=== PATIENT | female | born 1960 | race Caucasian/White ===

== ENCOUNTER 2023-09-22 05:51 | Inpatient (IN) ==
[~2023-09-22 05:51] MED LIST: Metoclopramide 5 MG/ML VIAL (10 mg) IV PRN; NS 0.45% 1000 ml BAG 1,000 ML IV SCH; Naloxone 0.4 mg VIAL 0.4 mg/ml 1 ml VIAL IV PRN; Ondansetron 4 mg VIAL 2 MG/ML 2 ml VIAL IV PRN; fentaNYL 100 mcg/2 ml 50 MCG/ML VIAL IV PRN
[2023-09-22] MEDS ORDERED: Scopolamine 1 mg/72hr PATCH ONE (06:12)
[2023-09-22] MEDS ORDERED: ceFAZolin 2 GM in NS PREMIX 2 GM/100 ML BAG IVPB ONE (06:13)
[2023-09-22] MEDS: Scopolamine 1 mg/72hr PATCH TRANSDERM ONE (06:25)
[2023-09-22] MEDS ORDERED: Lidocaine 2% PF 5 ML VIAL ONE (06:47)
[2023-09-22] MEDS ORDERED: Midazolam 2 mg/2 ml VIAL 1 mg/ml 2 ml VIAL (2 mg) ONE (06:47)
[2023-09-22] MEDS ORDERED: fentaNYL 100 mcg/2 ml 50 MCG/ML VIAL ONE ×3 (06:47→10:38)
[2023-09-22] MEDS ORDERED: Propofol 10 MG/ML 20 ML BTL ONE (06:47)
[2023-09-22] MEDS ORDERED: Ondansetron 4 mg VIAL 2 MG/ML 2 ml VIAL ONE (06:47)
[2023-09-22] MEDS ORDERED: Dexamethasone IV 4 MG/ML VIAL 1 ml VIAL ONE ×2 (06:47→07:15)
[2023-09-22] MEDS ORDERED: Rocuronium 50 mg VIAL 10 mg/ml 5 ml VIAL (50 mg) ONE (06:47)
[2023-09-22] MEDS ORDERED: Phenylephrine 40 mcg/mL 10mL (400mcg) SYRINGE ONE (06:47)
[2023-09-22] MEDS ORDERED: ROPIVACAINE 5 MG/ML 30 ML BTL (0.5%) ONE (07:13)
[2023-09-22] MEDS ORDERED: Vancomycin 1,000 MG VIAL ONE (08:23)
[2023-09-22] MEDS ORDERED: Lactulose 30 ml UDC PO PRN (09:55)
[2023-09-22] MEDS ORDERED: Ondansetron 4 mg VIAL 2 MG/ML 2 ml VIAL IV PRN (09:55)
[2023-09-22] MEDS ORDERED: Magnesium Hydroxide LIQ 30 ML UDC PO PRN (09:55)
[2023-09-22] MEDS ORDERED: Morphine 2 MG/ML SYRINGE IV PRN (09:55)
[2023-09-22] MEDS ORDERED: Ondansetron ODT 4 mg TAB 4 MG TAB PO PRN (09:55)
[2023-09-22] MEDS ORDERED: ceFAZolin VIAL VIAL ONE (11:05)
[2023-09-22] MEDS: Buffered Lidocaine 1% SYRIN 1 ml INTRADERM ONE (13:47)
[2023-09-22] MEDS: Lactated Ringers 1000 ml BAG 1,000 ML IV SCH ×2 (13:47→14:54)
[2023-09-22] MEDS: Acetaminophen IV 1 GM/100ML 1,000 MG/100 ML BAG IV ONE (13:47)
[2023-09-22] MEDS: ceFAZolin 1 GM ADVAN 1 GM in NS 0.9% 50 ML 50 ML IVPB SCH (18:45)
[2023-09-22] MEDS: Magnesium Hydroxide LIQ 30 ML UDC PO SCH (21:49)
[2023-09-23 06:15] LABS: Hematocrit 28.8 % (35-45); Hemoglobin 9.6 g/dL (11.5-14.3); Mean Platelet Volume 8.6 fL (7.5-11.2); Platelet Count 161 10^3/uL (150-450)
[2023-09-23 06:30] LABS: Calcium 8.7 mg/dL (8.6-10.3); Creatinine, Serum 0.67 mg/dL (0.51-0.95); Potassium 4.1 mmol/L (3.5-5.0)
[2023-09-23] MEDS: Vitamin THERAPEUTIC TAB PO SCH (07:58)
[2023-09-23] MEDS: Cholecalciferol (VIT D3) 1,000 unit TAB PO SCH (07:58)
[2023-09-23] MEDS: Latanoprost 0.005% 2.5 ml BTL BOTH EYES SCH (08:19)
[2023-09-23 10:25] VITALS: BP 110/50
[2023-09-24] MEDS ORDERED: Desflurane 240 ML INH ONE (07:01)
== END 2023-09-23 10:50 | disposition home or self-care (01) | DRG 483 ==
LOC: OBSVTOIN 05:51 → AA 05:51 → INTOOBSV 05:51 → SSU 09:55
PROVIDERS: ADMIT Orthopaedic Surgery; ATTEND Orthopaedic Surgery